=== PATIENT | male | born 1935 | race Caucasian/White ===

== ENCOUNTER 2016-08-11 07:57 | Day surgery (SDC) | payer MEDICARE ==
[2016-08-11] MEDS ORDERED: LIDOCAINE 2% MDV (20MG/ML) 20ML VIAL IV ONE (14:00)
[2016-08-11] MEDS ORDERED: FENTANYL PF 100MCG/2ML VIAL IV ONE (14:00)
[2016-08-11] MEDS ORDERED: PROPOFOL 10 MG/ML VIAL IV ONE (14:00)
--- NOTE | 2016-08-12 16:50 | Operative Note ---
DATE OF SURGERY: 08/11/2016 OPERATION: ESOPHAGOGASTRODUODENOSCOPY with biopsy. 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 PROCEDURE: After informed consent was obtained from the patient, he was placed in the left lateral decubitus position in the endoscopy suite, sedated and monitored by the department of anesthesia. Once sedated, a well-lubricated [id number] gastroscope was placed in the posterior oropharynx and under direct visualization passed to the proximal esophagus. The endoscope was advanced through the proximal, mid, and distal esophagus. The GE junction demonstrated irregularity and columnar changes consistent with short-segment Roe's. No nodularity, ulcers, erosions, or mass lesions were seen. The gastric body, antrum, pylorus, duodenal bulb and sweep were unremarkable other than some mild erythema in the antrum. J-turn views of the proximal stomach revealed no lesions or abnormalities. The endoscope was then straightened. Attention was turned to the distal esophagus where biopsies were obtained from the lower third of the esophagus. Minimal bleeding was noted. The endoscope was removed from the patient with no new findings noted. RECOMMENDATIONS: I would suggest the patient resume his medications and diet. He will likely require repeat exam in 3 years pending tissue histology. As always, thank you for allowing me to participate in the healthcare of your patients. CC: Dr. Sandra SOTOMAYOR
== END 2016-08-11 09:40 | disposition home or self-care (01) ==
LOC: HOP 07:57
PROVIDERS: ATTEND Internal Medicine Gastroenterology
DX: K22.70 Barrett's esophagus without dysplasia (principal); Z79.01 Long term (current) use of anticoagulants; I10 Essential (primary) hypertension; E11.9 Type 2 diabetes mellitus without complications; Z79.84 Long term (current) use of oral hypoglycemic drugs; E78.00 Pure hypercholesterolemia, unspecified; E03.9 Hypothyroidism, unspecified
CPT/HCPCS: 36416; 82948; 43239; 00740; J3010

== ENCOUNTER 2018-09-04 11:20 | Emergency (ER) | payer MEDICARE ==
[2018-09-04 11:40] LABS: BASO % 0.5 % (0-6); EOS % 6.6 % (0-6); GRAN % 63.1 % (47-80); HEMATOCRIT 42.4 % (42.0-52.0); LYMPH % 17.6 % (16-45); MEAN CELL VOLUME 93.8 fl (81-97); MEAN PLATELET VOLUME 9.5 fl (7.4-10.4); MONO % 12.2 % (0-9); PLATELET COUNT 293 K/uL (130-400); RED BLOOD COUNT 4.52 M/uL (4.40-5.70); RED CELL DISTRIBUTION WIDTH 13.8 % (11.5-14.5); WHITE BLOOD COUNT W/O DIFF 6.1 K/uL (4.2-12.2)
[2018-09-04 11:42] LABS: PARTIAL THROMBOPLASTIN TIME 29.4 SECONDS (24.5-39.1); PROTHROMBIN TIME (PATIENT) 10.3 SECONDS (9.5-12.1)
[2018-09-04 11:49] LABS: BLOOD UREA NITROGEN 16 mg/dL (8-23); CREATININE 1.1 mg/dL (0.7-1.2); EST GLOMERULAR FILTRATION RATE > 60 mL/min; GLUCOSE,RANDOM 210 mg/dL (74-109)
--- NOTE | 2018-09-04 12:16 | Emergency Department Record ---
History of Present Illness - General Chief Complaint: Fall Injury Stated Complaint: FALL Time Seen by Provider: 09/04/18 11:55 Source: Patient, Family Mode of Arrival: Wheelchair Limitations: No limitations - History of Present Illness Initial Comments: pt was carrying dog out becayse it is raining and fell down 3-4 steps. no loc. he injured his l shoulder, hand and his face and head Onset/Timin -: Minutes(s) Fall From: Down stairs (#), Standing When Fall Occurred: 1 hour RELIEF MAN Fall Witnessed: Yes, by family Place Fall Occurred: Home Loss of Consciousness: None Prolonged Down Time?: No Symptoms Prior to Fall: None Location: Head, Face Location - Extremities: Left: Shoulder, Hand Severity: Moderate Severity scale (1-10): 5 Quality: Aching Context: Tripped/slipped Associated Symptoms: Denies - Michelle Coma Scale Eye Response: (4) Open spontaneously Motor Response: (6) Obeys commands Verbal Response: (5) Oriented [place] Total: 15 - Related Data Home Medications Medication Instructions Recorded Confirmed Last Taken Amiodarone HCl [Pacerone] 200 mg PO DAILY 09/04/18 09/04/18 09/04/18 Apixaban [Eliquis] 5 mg PO BID 09/04/18 09/04/18 09/04/18 Clonidine HCl 0.1 mg PO BID 09/04/18 09/04/18 09/04/18 Clopidogrel Bisulfate [Clopidogrel] 75 mg PO DAILY 09/04/18 09/04/18 09/04/18 Isosorbide Mononitrate [Imdur] 60 mg PO DAILY 09/04/18 09/04/18 09/04/18 Levothyroxine Sodium 100 mcg PO DAILY 09/04/18 09/04/18 09/04/18 Metformin ER HCl [Glucophage Xr] 500 mg PO DAILY 09/04/18 09/04/18 09/04/18 Pravastatin Sodium [Pravachol] 20 mg PO DAILY 09/04/18 09/04/18 09/04/18 Tamsulosin HCl [Flomax] 0.4 mg PO DAILY 09/04/18 09/04/18 09/04/18 Zolpidem Tartrate [Ambien] 5 mg PO QHS 09/04/18 09/04/18 09/03/18 Allergies Allergy/AdvReac Type Severity Reaction Status Date / Time dabigatran etexilate AdvReac ITCHING Verified 09/04/18 11:36 [From Pradaxa] Travel Screening - Travel/Exposure Within Last 30 Days Have you traveled within the last 30 days?: No - Travel/Exposure Within Last Year Have you traveled outside the [place] in the last year?: No - Additonal Travel Details Have you been exposed to anyone with a communicable illness?: No - Travel Symptoms Symptom Screening: None Review of Systems Reviewed: No additional complaints except as noted below Constitutional: Reports: As per HPI. Denies: Chills, Fever, Malaise, Night sweats, Weakness, Weight change Eyes: Reports: As per HPI. Denies: Eye discharge, Eye pain, Photophobia, Vision change ENT: Reports: As per HPI. Denies: Congestion, Dental pain, Ear pain, Epistaxis , Hearing loss, Throat pain Respiratory: Reports: As per HPI. Denies: Cough, Dyspnea, Hemoptysis, Stridor, Wheezes Cardiovascular: Reports: As per HPI. Denies: Arrhythmia, Chest pain, Dyspnea on exertion, Edema, Murmurs, Orthopnea, Palpitations, Paroxysmal nocturnal dyspnea, Rheumatic Fever, Syncope Endocrine: Reports: As per HPI. Denies: Fatigue, Heat or cold intolerance, Polydipsia, Polyuria Gastrointestinal: Reports: As per HPI. Denies: Abdominal pain, Constipation, Diarrhea, Hematemesis, Hematochezia, Melena, Nausea, Vomiting Genitourinary: Reports: As per HPI. Denies: Dysuria, Frequency, Hematuria, Incontinence, Retention, Testicular pain, Testicular mass, Urgency Musculoskeletal: Reports: As per HPI. Denies: Arthralgia, Back pain, Gout, Joint swelling, Myalgia, Neck pain Skin: Reports: As per HPI. Denies: Bruising, Change in color, Change in hair/ nails, Lesions, Pruritus, Rash Neurological: Reports: As per HPI. Denies: Abnormal gait, Confusion, Headache, Numbness, Paresthesias, Seizure, Tingling, Tremors, Vertigo, Weakness Psychiatric: Reports: As per HPI. Denies: Anxiety, Auditory hallucinations, Depression, Homicidal thoughts, Suicidal thoughts, Visual hallucinations Hematological/Lymphatic: Reports: As per HPI. Denies: Anemia, Blood Clots, Easy bleeding, Easy bruising, Swollen glands Past Medical History - SOCIAL HISTORY Smoking Status: Never smoker Alcohol Use: None Drug Use: None - RESPIRATORY Hx Respiratory Disorders: No - CARDIOVASCULAR Hx Cardio Disorders: Yes Hx Cardiac Cath: Yes Hx Chest Pain: No Hx Heart Attack: Yes (1984) Hx Hypertension: Yes Hx Coronary Artery Disease: Yes Hx Coronary Artery Bypass Graft: Yes Hx Coronary Stent: Yes - NEURO Hx Neuro Disorders: No - GI Hx GI Disorders: Yes Hx Reflux: Yes Comment:: hx of Barretts esophagus - Hx Genitourinary Disorders: Yes Hx Prostate Problems: Yes (BPH) Hx UTI: Yes (hx of) - ENDOCRINE Hx Endocrine Disorders: Yes Hx Diabetes: Yes Hx Thyroid Disease: Yes Comment:: does not have glucometer - MUSCULOSKELETAL Hx Musculoskeletal Disorders: Yes - PSYCH Hx Psych Problems: No - HEMATOLOGY/ONCOLOGY Hx Hematology/Oncology Disorders: Yes Hx Cancer: Yes (melanoma) Hx Chemotherapy: No Hx Radiation Therapy: No Comment:: on Plavix-okay to stop per prescribing physician Family Medical History Any Significant Family History?: Yes Hx Heart Disease: Mother Physical Exam - General General Appearance: Alert, Oriented x3, Cooperative, No acute distress - Head Head exam: Other Head exam detail: Contusion, Hematoma Image of Face/Head: 1 - hematoma - Eye Eye exam: Normal appearance, PERRL Pupils: Normal accommodation - ENT ENT exam: Normal exam, Mucous membranes moist, Normal external ear exam, Normal orophraynx Ear exam: Normal external inspection. negative: External canal tenderness Nasal Exam: Normal inspection. negative: Discharge, Sinus tenderness Mouth exam: Normal external inspection, Tongue normal Teeth exam: Normal inspection. negative: Dental caries Throat exam: Normal inspection. negative: Tonsillar erythema, Tonsillar exudate - Neck Neck exam: Normal inspection, Full ROM. negative: Tenderness - Respiratory Respiratory exam: Normal lung sounds bilaterally. negative: Respiratory distress - Cardiovascular Cardiovascular Exam: Regular rate, Normal rhythm, Normal heart sounds - GI/Abdominal GI/Abdominal exam: Soft, Normal bowel sounds. negative: Tenderness - Rectal Rectal exam: Deferred - exam: Deferred - Extremities Extremities exam: Normal inspection, Full ROM, Normal capillary refill, Tenderness (l shoulder and l hand) - Back Back exam: Reports: Normal inspection, Full ROM. Denies: Muscle spasm, Rash noted, Tenderness - Neurological Neurological exam: Alert, CN II-XII intact, Normal gait, Oriented X3 - Psychiatric Psychiatric exam: Normal affect, Normal mood - Skin Skin exam: Dry, Intact, Normal color, Warm Type of lesion: Laceration Distribution of rash: LUE Course Vital Signs 09/04/18 11:37 Temperature 97.9 F Pulse Rate 58 L Respiratory 20 Rate Blood Pressure 223/110 Pulse Ox 96 Medical Decision Making - Lab Data Result diagrams: 09/04/18 11:20 09/04/18 11:20 Lab Results 09/04/18 09/04/18 09/04/18 Range/Units 11:20 11:20 11:20 WBC 6.1 (4.2-12.2) K/uL RBC 4.52 (4.40-5.70) M/uL Hgb 14.0 (14.0-18.0) gm/dl Hct 42.4 (42.0-52.0) % MCV 93.8 (81-97) fl MCH 31.0 (27-33) pg MCHC 33.0 (32-36) g/dl RDW 13.8 (11.5-14.5) % Plt Count 293 (130-400) K/uL MPV 9.5 (7.4-10.4) fl Gran % 63.1 (47-80) % Lymphocytes % 17.6 (16-45) % Monocytes % 12.2 H (0-9) % Eosinophils % 6.6 H (0-6) % Basophils % 0.5 (0-6) % Absolute Neutrophils Not Reportable PT 10.3 (9.5-12.1) SECONDS INR 1.0 APTT 29.4 (24.5-39.1) SECONDS Sodium 138 (136-145) mmol/L Potassium 4.2 (3.4-4.5) mmol/L Chloride 102 (98-107) mmol/L Carbon Dioxide 26.0 (22-29) mmol/L Anion Gap 10.0 (7-16) BUN 16 (8-23) mg/dL Creatinine 1.1 (0.7-1.2) mg/dL Estimated GFR > 60 mL/min Random Glucose 210 H (74-109) mg/dL Calcium 9.4 (8.8-10.2) mg/dL Disposition Disposition: Discharge Clinical Impression: Head injury due to trauma Qualifiers: Encounter type: initial encounter Qualified Code(s): S09.90XA - Unspecified injury of head, initial encounter Traumatic hematoma of face Qualifiers: Encounter type: initial encounter Qualified Code(s): S00.83XA - Contusion of other part of head, initial encounter Skin tear of hand without complication Qualifiers: Encounter type: initial encounter Laterality: left Qualified Code(s): S61.412A - Laceration without foreign body of left hand, initial encounter Disposition: Home, Self-Care Condition: (1) Good Instructions: Fall Prevention for Older Adults (ED), Head Injury (ED), Contusion in Adults (ED), Skin Tear (ED) Additional Instructions: apply ice to face. sleep elevated. follow up with family doctor tomorrow. return sooner if worse. do not take todays eliquis Forms: Patient Portal Access Quality - Quality Measures Quality Measures: N/A - Blood Pressure Screening Does Patient Have Any of the Following: Active Dx of HTN Blood Pressure Classification: Hypertensive Reading Systolic Measurement: 223 Diastolic Measurement: 110 Screening for High Blood Pressure: Patient Exclusion, Hx of HTN [[id number]]
--- NOTE | 2018-09-06 11:02 | CT SCAN REPORT ---
EXAM: NONCONTRAST CT OF THE CERVICAL SPINE HISTORY: FALL. TECHNIQUE: Noncontrast CT of the cervical spine was obtained. Comparison: None. FINDINGS: No acute fracture is seen. No evidence of dislocation. Chronic fusion between the C5 and C6 vertebral bodies and posterior elements. Disk height loss and end plate osteophytes at C3-C4, C4-C5, and C6-C7. Grade 1 anterolisthesis at C7-T1, likely degenerative in nature. The central spinal canal appears narrowed at multiple levels, most prominently at C3-C4. Multilevel neural foraminal stenosis, most pronounced bilaterally at C3-C4, bilaterally at C4-C5, and bilaterally at C6-C7. Bilateral carotid arterial calcifications. The visualized upper lungs are clear. Suggestion of small subcentimeter right thyroid lobe nodule. IMPRESSION: 1. NO ACUTE CERVICAL SPINE FRACTURE OR DISLOCATION SEEN. 2. MULTILEVEL CERVICAL SPINE DEGENERATIVE FINDINGS WITH CENTRAL SPINAL CANAL AND NEURAL FORAMINAL STENOSIS. 3. NOT MENTIONED ABOVE, RETROPHARYNGEAL COURSE OF THE RIGHT INTERNAL CAROTID ARTERY IS INCIDENTALLY NOTED. JOB NUMBER: [id number] [facility]
--- NOTE | 2018-09-06 11:08 | CT SCAN REPORT ---
EXAM: NONCONTRAST CT OF THE BRAIN HISTORY: FALL, HEAD INJURY. TECHNIQUE: Noncontrast CT of the brain was obtained. Comparison: None. FINDINGS: Anterior inferior left frontal lobe encephalomalacia suggesting remote infarction. Suggestion of remote bilateral basal ganglia lacunar infarctions. Extensive periventricular and subcortical white matter hypoattenuation. Mild generalized cerebral volume loss. No midline shift, mass effect, or abnormal intra or extraaxial fluid collection. No intracranial hemorrhage detected. Intracranial vascular calcifications are noted. No evidence of a displaced calvarial fracture. The visualized paranasal sinuses and mastoid air cells are clear. IMPRESSION: 1. NO ACUTE INTRACRANIAL FINDINGS. 2. LEFT FRONTAL LOBE ENCEPHALOMALACIA SUGGESTING REMOTE INFARCTION. 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 3. EXTENSIVE WHITE MATTER HYPOATTENUATION, NONSPECIFIC, BUT SUGGESTIVE OF CHRONIC SMALL VESSEL ISCHEMIC CHANGE. MILD DIFFUSE CEREBRAL VOLUME LOSS. JOB NUMBER: [id number] [facility]
--- NOTE | 2018-09-06 11:15 | CT SCAN REPORT ---
EXAM: CT OF THE FACIAL BONES WITHOUT CONTRAST HISTORY: FALL, LEFT FACIAL INJURY. TECHNIQUE: Noncontrast CT of the facial bones were obtained. Comparison: None. FINDINGS: Asymmetric left periorbital and facial soft tissue swelling. The globes appear symmetric and intact. The retrobulbar fat is clear. Mild deformity of the mid left zygomatic arch, appearance suggest most likely chronic. The nasal bones appear intact. The orbital rims appear intact. The mandible appears intact. No definite acute facial bone fracture is identified. Mild irregularities involving the tips of multiple anterior mandibular teeth. The maxillary teeth are completely absent. Mild concavity along the anterior wall of the left maxillary sinus. Focal soft tissue hematoma overlying the left zygoma measuring approximately 3.0 x 2.2 cm. No significant paranasal sinus opacification. Incidentally noted is a retropharyngeal course of the right internal carotid artery. IMPRESSION: 1. LEFT PERIORBITAL AND FACIAL SOFT TISSUE SWELLING WITH SMALL HEMATOMA OVERLYING THE ZYGOMA. 2. MILD DEFORMITIES OF THE LEFT ZYGOMATIC ARCH AND LEFT MAXILLARY SINUS ANTERIOR WALL; THESE MAY BE CHRONIC IN NATURE. NO DEFINITE ACUTE FACIAL BONE FRACTURE. 3. MILD IRREGULARITY OF THE TIPS OF THE ANTERIOR MANDIBULAR TEETH; MAY REPRESENT DENTAL CARIES OR DENTAL TRAUMA. JOB NUMBER: [id number] [facility]
--- NOTE | 2018-09-06 15:36 | RADIOLOGY REPORT ---
EXAMINATION: Left shoulder radiographs. CLINICAL HISTORY: Left shoulder pain with decreased range of motion after fall. TECHNIQUE: Three views of the left shoulder. COMPARISON: None. FINDINGS: No definite acute fracture. No dislocation. Glenohumeral arthrosis with joint space narrowing and small inferior osteophytes. Mild to moderate acromioclavicular joint arthrosis. Narrowing of the acromiohumeral interval, suggests an underlying rotator cuff pathology, chronic-appearing focal deformity of the posterior left 5th rib, suggesting healed fracture. IMPRESSION: 1. Acute osseous findings. 2. Glenohumeral and acromioclavicular joint arthrosis. 3. Narrowing of the acromiohumeral interval, suggesting underlying rotator cuff pathology. 4. Suggestion of old healed left rib fracture. [facility]
--- NOTE | 2018-09-06 15:36 | RADIOLOGY REPORT ---
EXAMINATION: Left hand radiographs on 09/04/2018. CLINICAL HISTORY: Posterior hand pain after a fall. TECHNIQUE: Three views of the left hand. COMPARISON: None. FINDINGS: No acute fracture is seen. No evidence of dislocation. Mild scattered arthrosis throughout the wrist and distal interphalangeal joints. No radiopaque foreign body. IMPRESSION: No acute osseous findings. [facility]
== END 2018-09-04 15:09 | disposition home or self-care (01) ==
LOC: ER 11:20
DX: S09.90XA Unspecified injury of head, initial encounter (principal); S00.83XA Contusion of other part of head, initial encounter; S61.412A Laceration without foreign body of left hand, initial encounter; S19.9XXA Unspecified injury of neck, initial encounter; M25.512 Pain in left shoulder; W10.9XXA Fall (on) (from) unspecified stairs and steps, initial encounter; Y93.K9 Activity, other involving animal care; Y92.007 Garden or yard of unspecified non-institutional (private) residence as the place of occurrence of the external cause; I10 Essential (primary) hypertension; I25.2 Old myocardial infarction; E11.9 Type 2 diabetes mellitus without complications; Z79.01 Long term (current) use of anticoagulants; Z79.84 Long term (current) use of oral hypoglycemic drugs
CPT/HCPCS: 70450; 70486; 72125; 80048; 85025; 85610; 85730; 99284